=== PATIENT | female | born 2000 | race Caucasian/White ===

== ENCOUNTER 2021-10-07 15:21 | Emergency (ER) | payer OTHER, SELFPAY ==
[2021-10-07 15:30] VITALS: BP 150/101; PULSE 101; RESP 16; TEMP 36.6; O2SAT 98; BMI 28.3
--- NOTE | 2021-10-07 15:55 | ED_ITS ---
HPI - Asthma General Chief Complaint: Asthma Stated Complaint: asthma Time Seen by Provider: 10/07/21 15:55 Source: patient Mode of arrival: ambulatory Limitations: no limitations History of Present Illness HPI Narrative: 21-year-old female who presents emergency department for evaluation of asthma exacerbation. She states that she has been short of breath for 1 week. She states that she has had wheezing and dyspnea on exertion. She has had a cough which is nonproductive. The patient states that her mother has CT since she staying with her mother and this often triggers her asthma. She does not have an inhaler at this time. She denied fever, chills, rhinorrhea, chest pain, nausea, vomiting, abdominal pain, pain or swelling in her lower extremities. Onset (ago): week(s) (1) Severity: moderate Context: pet exposure (CT) Associated symptoms: dry cough Related Data Current Asthma Therapy: none Previous Rx's Medication Instructions Recorded albuterol sulfate 90 mcg/actuation 2 puff INHALATION Q4-6H PRN #8.5 g 10/07/21 aerosol inhaler (ProAir HFA) prednisone 20 mg tablet 60 mg PO DAILY 5 Days #15 tab 10/07/21 Allergies Allergy/AdvReac Type Severity Reaction Status Date / Time ibuprofen [From MOTRIN] Allergy Unknown HIVES Unverified 04/21/20 17:14 Review of Systems Review of Systems: Yes all other systems are reviewed and are negative [facility] Past Medical History [facility] Narrative: Past medical history: Asthma, PCOS, anemia, hypothyroidism. Past surgical history: None. Social history: She denies drug use. She denies tobacco use. She occasionally drinks alcohol. She states she did drink some rum last night. Physical Exam Vital Signs: Vital Signs: Last Vital Signs Temp 97.8 F 10/07/21 15:30 Pulse 101 H 10/07/21 15:30 Resp 16 10/07/21 15:30 BP 150/101 H 10/07/21 15:30 Pulse Ox 98 10/07/21 15:30 BMI result Body Mass Index 28.3 Const: General: cooperative and no acute distress Orientati on/consciousness: oriented to person and oriented to place Limitations: no limitations HENMT: Head: Yes normal to inspection, Yes normocephalic and Yes atraumatic Ears: external ears normal General nose exam: Normal external nose present Face and sinus: Yes normal facial exam Mouth: Normal oral and palatal mucosa present Throat: Yes posterior oropharynx normal Eyes: General: appearance normal, both eyes and all related structures Pupils: Equal, round and reactive pupils present Neck: Neck: Yes normal visual inspection, Yes no lymphadenopathy, Yes trachea midline and Yes supple Chest: Chest palpation & inspection: normal inspection of the chest and normal palpation of entire chest wall Resp: Effort & Inspection: normal respiratory effort and able to speak in complete sentences Auscultation: clear to auscultation bilaterally Cardio: Rate: regular rate Rhythm: regular rhythm Heart sounds: S1 normal heart sound present, S2 normal heart sound present and no murmurs GI: Inspection: Yes normal to inspection Palpation (GI): Soft to palpation, nontender and no guarding Auscultation: normal bowel sounds : General: Yes no CVA tenderness Back/Spine/Pelvis: Back: no CVA tenderness Skin: General skin exam: no rashes or lesions noted Neuro: General: oriented to person and oriented to place Cranial nerves: Yes CN's II-XII intact bilaterally and Yes Equal, round and reactive pupils present Cognition (Neuro): normal cognition Motor exam (neuro): 5/5 motor strength present throughout Extrem: General: Yes normal to inspection Psych: Appearance: grossly normal Speech and movement: Normal speech and movement present Affect: normal affect Attitude: cooperative Thought process: Normal thought process present Thought content: Normal thought content present Course Course Course Narrative: 21-year-old female with history of asthma who states that her triggers cat's, she staying with her mother groans cat's. She has had symptoms for 1 week in the symptoms include shortness of breath, wheezing, dyspnea on exertion and nonproductive cough. The patient does not have an inhaler at this time. The patient's vital signs did reveal an elevated blood pressure of 150/101 elevated pulse of 101. O2 sat was 98 % on room air. Her exam was unremarkable. Patient's presentation is consistent with an asthma exacerbation. Patient was started on albuterol inhaler 2 puffs every 4-6 hours and prednisone 60 mg once a day. She was given printed and verbal instructions and discharged home. MDM - Asthma Lab Data Labs: Lab Results 10/07/21 Range/Units 15:36 COVID-19 ([facility]) Negative (Negative) COVID-19 Clin Com See Note Discharge Plan Discharge Clinical Impression: Asthma with acute exacerbation Patient Disposition: Home, Self-Care Instructions: Asthma (ED) Additional Instructions: Use the albuterol inhaler, 2 puffs every 4 hours as needed for shortness of breath. Take prednisone 20 mg pills, 3 pills once a day for 5 days. This is a steroid medication and will reduce the inflammation in your breathing tubes (bronchials) and help improve your symptoms. Take Tylenol (acetaminophen) 500 mg pills, 2 pills every 4 to 6 hours as needed for pain or fever I will text or call you with your COVID-19 result. This sometimes takes 2 hours to come back. Follow-up with your doctor in 2 days. Please return to the emergency department if your symptoms get worse or if you develop any symptoms that are concerning to you. Prescriptions: New prednisone 20 mg tablet 60 mg PO DAILY 5 Days Qty: 15 0RF albuterol sulfate [ProAir HFA] 90 mcg/actuation HFA aerosol inhaler 2 puff inhalation Q4-6H PRN (Reason: shortness of breath or wheezing) Qty: 8.5 0RF
[2021-10-07 15:57] LABS: COVID-19 Test Negative (Negative); IDNOW Serial# 16C4AD1C
== END 2021-10-07 16:28 | disposition home or self-care (01) ==
LOC: HO.ED 16:06
PROVIDERS: Emergency Provider Emergency Medicine Emergency Medical Services
DX: J45.901 Unspecified asthma with (acute) exacerbation (principal); Z20.822 Contact with and (suspected) exposure to COVID-19
CPT/HCPCS: 87635; 99283

== ENCOUNTER 2021-10-31 21:38 | Emergency (ER) | payer OTHER, SELFPAY ==
--- NOTE | ~2021-10-31 | XR_ITS ---
EXAMINATION: XR CHEST CLINICAL INFORMATION: Asthma COMPARISON: None TECHNIQUE: Frontal view of the chest was obtained. FINDINGS: Cardiac silhouette is normal in size. The lungs are well aerated. There is no lobar consolidation. No pleural effusion or pneumothorax. XR/XR chest 1V IMPRESSION: No acute pulmonary pathology.
[2021-10-31 21:41] VITALS: BP 149/86; PULSE 84; RESP 18; TEMP 36.9; O2SAT 100; BMI 27.4
[2021-10-31 22:52] VITALS: BP 149/96; PULSE 100; RESP 16; TEMP 36.4; O2SAT 100
--- NOTE | 2021-10-31 22:56 | PC.NURSE ---
Assumed care of pt Pt c/o asthma attack since Saturday. Pt used inhaler 3x today with some relief but SOB and wheezing comes back. Last inhaler used at 1600. Pt also congested. 96% - 100% on RA NAD Will continue to monitor
--- NOTE | 2021-10-31 23:09 | ED_ITS ---
HPI - Asthma General Chief Complaint: Asthma Stated Complaint: Asthma, inhaler isnt working Time Seen by Provider: 10/31/21 23:09 Source: patient Mode of arrival: ambulatory Limitations: no limitations History of Present Illness HPI Narrative: Patient with history of asthma vaccine against COVID only if 1st shot in 08/26 complaining of nasal congestion for last 2-3 days with increased shortness of breath and dry cough no fever no chills Related Data Previous Rx's Medication Instructions Recorded albuterol sulfate 90 mcg/actuation 2 puff INHALATION Q4-6H PRN #8.5 g 10/07/21 aerosol inhaler (ProAir HFA) prednisone 20 mg tablet 60 mg PO DAILY 5 Days #15 tab 10/07/21 albuterol sulfate 90 mcg/actuation 2 puff INHALATION Q4-6H PRN #8.5 g 11/01/21 aerosol inhaler (ProAir HFA) prednisone 20 mg tablet 40 mg PO DAILY #10 tab 11/01/21 Allergies Allergy/AdvReac Type Severity Reaction Status Date / Time ibuprofen [From MOTRIN] Allergy Unknown HIVES Verified 10/31/21 21:41 Review of Systems Review of Systems: Yes all other systems are reviewed and are negative [facility] Social History Social History Advance Directives: No Advance Directives Information Provided: No Patient : No Physical Exam Vital Signs: Vital Signs: Last Vital Signs Temp 97.6 F 10/31/21 22:52 Pulse 98 10/31/21 23:22 Resp 20 10/31/21 23:22 BP 149/96 H 10/31/21 22:52 Pulse Ox 100 10/31/21 22:52 BMI result Body Mass Index 27.4 Appearance: Alert. Oriented X3. No acute distress. ENT: Pharynx normal. Oral Mucosa moist clear nasal discharge Neck: Normal inspection. Neck supple. CVS: Normal heart rate and rhythm. Pulses normal. Respiratory: No respiratory distress. Equal air entry bilateral, bilateral prolonged expiration with wheezing Abdomen: Soft and nontender. Bowel sounds are present, no mass palpable, no CVA tenderness Skin: Skin warm and dry. Normal skin color. Normal skin turgor. Extremities: No lower extremity edema. No calf tenderness Neuro: Oriented X 3. MDM - Asthma MDM Narrative Medical decision making narrative: Patient feeling better after nebulizing treatment will discharge patient home chest x-ray negative flu COVID negative Lab Data Attestation: I reviewed the patient's lab results. Labs: Lab Results 10/31/21 10/31/21 Range/Units 23:26 23:26 COVID-19 ([facility]) Negative (Negative) COVID-19 Clin Com See Note Influenza Type A ([facility]) Negative (Negative) Influenza Type B ([facility]) Negative (Negative) Influenza A & B Note See Note Discharge Plan Discharge Clinical Impression: Asthma with acute exacerbation Patient Disposition: Home, Self-Care Instructions: Asthma (ED) Additional Instructions: Use inhaler 2 puffs every 4-6 hours as needed Prednisone as advised Follow with PCP if not better Prescriptions: New prednisone 20 mg tablet 40 mg PO DAILY Qty: 10 0RF albuterol sulfate [ProAir HFA] 90 mcg/actuation HFA aerosol inhaler 2 puff inhalation Q4-6H PRN (Reason: Wheezing) Qty: 8.5 0RF No Action prednisone 20 mg tablet 60 mg PO DAILY 5 Days Qty: 15 0RF albuterol sulfate [ProAir HFA] 90 mcg/actuation HFA aerosol inhaler 2 puff inhalation Q4-6H PRN (Reason: shortness of breath or wheezing) Qty: 8.5 0RF
[2021-10-31 23:22] VITALS: PULSE 98; RESP 20; O2SAT 97
[2021-10-31] MEDS: Albuterol Sulfate (0.083%) 2.5 MG/3 ML VIAL.NEB 5 MG INHALE (23:22)
[2021-10-31] MEDS: Albuterol/Iprat 2.5/0.5MG 3 ML AMPUL.NEB INHALE (23:22)
[2021-10-31] MEDS: predniSONE 20 MG TABLET 40 MG PO (23:26)
[2021-10-31 23:50] LABS: IDNOW Serial# 08D9AD1C; Influenza A Negative (Negative); Influenza B2 Negative (Negative)
[2021-11-01 00:02] LABS: COVID-19 Test Negative (Negative); IDNOW Serial# 08D9AD1C
[2021-11-01 00:17] VITALS: BP 129/83; PULSE 114; RESP 18; O2SAT 97
== END 2021-11-01 00:20 | disposition home or self-care (01) ==
PROVIDERS: Emergency Provider Internal Medicine
DX: J45.901 Unspecified asthma with (acute) exacerbation (principal); Z20.822 Contact with and (suspected) exposure to COVID-19; Z79.899 Other long term (current) drug therapy
CPT/HCPCS: 71045; 87502; 87635; 94640; 94644; 99283; 99284

== ENCOUNTER 2021-12-26 00:38 | Emergency (ER) | payer OTHER, SELFPAY ==
[2021-12-26 01:09] LABS: Basophils Absolute Auto 0.1 X10*3/uL (0.0-0.2); Eosinophils Absolute Auto 0.3 X10*3/uL (0.0-0.4); Eosinophils Percent Auto 3.2 % (0-4); Hematocrit 32.4 % (37.0-47.0); Hemoglobin 9.4 g/dl (12.0-16.0); Imm Gran Abs Auto 0.03 X10*3/uL (0.00-0.03); Imm Gran Pct Auto 0.3 % (0.0-0.4); Lymphocytes Absolute Auto 2.6 X10*3/uL (1.2-4.9); Lymphocytes Percent Auto 28.8 % (20-40); MANUAL DIFF FLAG NO; Mean Corpuscular Hemoglobin 20.1 pg (27.0-33.0); Mean Corpuscular Volume 69.4 fL (80.0-98.0); Monocytes Absolute Auto 0.7 X10*3/uL (0.1-1.2); Neutrophils Absolute Auto 5.4 x10*3/uL (2.0-8.3); Neutrophils Percent Auto 58.7 % (45-73); Platelet Count 363 X10*3/uL (160-400); Red Blood Count 4.67 X10*6/uL (4.20-5.50); Red Cell Distribution Width 18.9 % (11.0-16.0); White Blood Count 9.2 X10*3/uL (4.8-10.8)
[2021-12-26 01:13] VITALS: BP 154/81; PULSE 115; RESP 20; TEMP 36.4; O2SAT 100; BMI 28.3
[2021-12-26 01:20] LABS: INTERNATIONAL NORM RATIO 1.2 (0.9-1.1); Prothrombin Time 13.1 SEC (9.9-13.0)
[2021-12-26 01:33] LABS: Alanine Aminotransferase 15 U/L (0-31); Albumin Level 4.3 g/dL (3.5-5.0); Alkaline Phosphatase 66 U/L (39-117); Anion Gap 10 (12-20); Aspartate Amino Transferase 17 U/L (5-31); Bilirubin Direct 0.2 mg/dL (0.0-0.5); Bilirubin Total 0.6 mg/dL (0.0-1.0); Blood Urea Nitrogen 10 mg/dL (9-16); Calcium 9.6 mg/dL (8.4-10.2); Carbon Dioxide 26 mmol/L (22-29); Chloride 107 mmol/L (96-108); Estimated Glomerular Filt Rate > 60; Glucose Random 97 mg/dL (60-115); Potassium 4.3 mmol/L (3.3-5.1); Sodium 139 mmol/L (135-145)
[2021-12-26 01:39] LABS: HCG Quantitative < 2 mIU/mL
[2021-12-26 01:50] VITALS: BP 154/90; PULSE 115; RESP 16; O2SAT 100
--- NOTE | 2021-12-26 01:50 | ED.FEMALEGU ---
HPI - Female Genitourinary General Chief complaint: Urogenital-Female Stated complaint: Vaginal Bleeding/Nausea/Dizziness Time Seen by Provider: 12/26/21 00:39 Source: patient Mode of arrival: ambulatory Limitations: no limitations History of Present Illness MD elicited complaint: vaginal bleeding and pelvic pain Pertinent past history: other (anemia, irregular bleeding PCOS) Onset (ago): day(s) (2) Location of symptoms: suprapubic Severity: moderate Quality of pain: aching Consistency: constant Vaginal bleeding: heavy, bright red, clots and # pads per day (10+) Exacerbating factors: none Relieving factors: none Associated symptoms: weakness Treatment prior to arrival: none Related Data Previous Rx's Medication Instructions Recorded albuterol sulfate 90 mcg/actuation 2 puff INHALATION Q4-6H PRN #8.5 g 10/07/21 aerosol inhaler (ProAir HFA) prednisone 20 mg tablet 60 mg PO DAILY 5 Days #15 tab 10/07/21 albuterol sulfate 90 mcg/actuation 2 puff INHALATION Q4-6H PRN #8.5 g 11/01/21 aerosol inhaler (ProAir HFA) prednisone 20 mg tablet 40 mg PO DAILY #10 tab 11/01/21 ferrous sulfate 325 mg (65 mg 325 mg PO DAILY #30 tab 12/26/21 iron) tablet levonorgestrel-ethinyl estradiol 1 tab PO DAILY #28 tab 12/26/21 0.1 mg-20 mcg tablet (Aviane) Allergies Allergy/AdvReac Type Severity Reaction Status Date / Time ibuprofen [From MOTRIN] Allergy Unknown HIVES Verified 10/31/21 21:41 Review of Systems Review of Systems: Constitutional : No Fever, No Chills ENT/Mouth : No sore throat, No Rhinorrhea Eyes: No Eye Pain, No Redness Cardiovascular : No Chest Pain, No SOB Respiratory : No Cough, No Sputum, No Wheezing Gastrointestinal : positive Nausea, No Vomiting, No Diarrhea, no abdominal pain, Genitourinary : positive irregular bleeding, No Dysuria, No Urinary Frequency, positive pelvic pain Musculoskeletal : No Myalgias Skin : No rash Neuro : No Weakness, No Headache, pos dizziness Psych : No Anxiety/Panic, No Depression Heme/Lymph: No bruising, No Lymphadenopathy Endocrine : No Polyuria, No Polydipsia All other systems reviewed and are negative PMFSH Past Medical History Attestation statement: The following information was validated with the patient. Medical History Anemia Hypothyroidism PCOS (polycystic ovarian syndrome) Social History Social History (Updated 12/26/21 @ 02:06 by Beatris Beard DO) Patient Tobacco Use Status: Never used Tobacco Use of substances other than those prescribed or required for medical reasons: No Advance Directives: No Patient : No Physical Exam Vital Signs: Vital Signs: Last Vital Signs Temp 97.5 F 12/26/21 01:13 Pulse 87 12/26/21 04:31 Resp 16 12/26/21 04:31 BP 132/69 12/26/21 04:31 Pulse Ox 97 12/26/21 04:31 BMI result Body Mass Index 28.3 Appearance: Alert. Oriented X3. No acute distress. Eyes: Pupils equal, round and reactive to light. ENT: Pharynx normal. Neck: Normal inspection. Neck supple. CVS: tachycardic heart rate and rhythm. Pulses normal. Respiratory: No respiratory distress. Breath sounds normal. Abdomen: Soft and non-tender. : 3 scopettes of blood os closed, no clots seen Skin: Skin warm and dry. pale skin color. Normal skin turgor. Extremities: No lower extremity edema. No calf ttp Neuro: Oriented X 3. No motor deficit. No sensory deficit. Course Course Course Narrative: will hydrate, obtain type and screen, repeat CBC at 430am if bleeding worsens or persists she has no contraindications to premarin HR 80 BP stable hemoglobin drop to 8.2 no sig bleeding will discuss with OB message sent to OB 5am bleeding has decreased since arrival patient feels much better after much discussion she didn't actually take her OCPs as prescribed and missed doses which likely attributed to them not working Dr. Andrews recommends starting on OCPs and follow up this week - mom wants to try Aviane since it worked for patient's sister MDM - Female Genitourinary MDM Narrative Medical decision making narrative: 21 yo female hx of anemia and PCOS bouts of heavy vaginal bleeding has been bleeding for the past two days going through almost a whole package of pads - at this time her hemoglobin is low but her hgb is sometimes around 6 per her reports. She is not on OCPs at this time labs, IVF, pelvic exam ordered. Dispo per results and observation. Lab Data Result diagrams: 12/26/21 04:19 12/26/21 00:58 Labs: Lab Results 12/26/21 12/26/21 12/26/21 Range/Units 00:58 00:58 00:58 WBC 9.2 (4.8-10.8) X10*3/uL RBC 4.67 (4.20-5.50) X10*6/uL Hgb 9.4 L (12.0-16.0) g/dl Hct 32.4 L (37.0-47.0) % MCV 69.4 L (80.0-98.0) fL MCH 20.1 L (27.0-33.0) pg MCHC 29.0 L (31.0-35.0) g/dl RDW 18.9 H (11.0-16.0) % Plt Count 363 (160-400) X10*3/uL MPV 10.0 (9.4-12.3) fL Immature Gran % (Auto) 0.3 (0.0-0.4) % Neut % (Auto) 58.7 (45-73) % Lymph % (Auto) 28.8 (20-40) % Walker % (Auto) 8.0 (2-11) % Eos % (Auto) 3.2 (0-4) % Baso % (Auto) 1.0 (0-2) % Lymph # (Auto) 2.6 (1.2-4.9) X10*3/uL Walker # (Auto) 0.7 (0.1-1.2) X10*3/uL Eos # (Auto) 0.3 (0.0-0.4) X10*3/uL Baso # (Auto) 0.1 (0.0-0.2) X10*3/uL Abs Immat Gran (auto) 0.03 (0.00-0.03) X10*3/uL Absolute Neuts (auto) 5.4 (2.0-8.3) x10*3/uL Absolute Nucleated RBC 0.000 (0.0-0.012) X10*3/uL Nucleated RBC % (auto) 0.0 (0.0-0.2) /100WBC PT 13.1 H (9.9-13.0) SEC INR 1.2 H (0.9-1.1) Sodium 139 (135-145) mmol/L Potassium 4.3 (3.3-5.1) mmol/L Chloride 107 (96-108) mmol/L Carbon Dioxide 26 (22-29) mmol/L Anion Gap 10 L (12-20) BUN 10 (9-16) mg/dL Creatinine 0.76 (0.5-1.4) mg/dL Estim Creat Clear Calc 114.0 Estimated GFR > 60 Random Glucose 97 (60-115) mg/dL Calcium 9.6 (8.4-10.2) mg/dL Total Bilirubin 0.6 (0.0-1.0) mg/dL Direct Bilirubin 0.2 (0.0-0.5) mg/dL AST 17 (5-31) U/L ALT 15 (0-31) U/L Alkaline Phosphatase 66 (39-117) U/L Total Protein 8.0 (6.5-8.0) g/dL Albumin 4.3 (3.5-5.0) g/dL Beta HCG, Quant < 2 mIU/mL Urine Color Urine Appearance Urine pH (5.0-8.0) Ur Specific Hamilton (1.005-1.025) Urine Protein (NEG-TRACE) MG/DL Urine Glucose (UA) (NEG) MG/DL Urine Ketones (NEG) MG/DL Urine Blood (NEG) Urine Nitrite (NEG) Ur Leukocyte Esterase (NEG) Urine RBC (0) /HPF Urine WBC (0-4) /HPF Ur Squamous Epith Cells /LPF Urine Bacteria /LPF Urine Mucus /LPF Blood Type Antibody Screen 12/26/21 12/26/21 12/26/21 Range/Units 00:58 02:53 04:15 WBC (4.8-10.8) X10*3/uL RBC (4.20-5.50) X10*6/uL Hgb (12.0-16.0) g/dl Hct (37.0-47.0) % MCV (80.0-98.0) fL MCH (27.0-33.0) pg MCHC (31.0-35.0) g/dl RDW (11.0-16.0) % Plt Count (160-400) X10*3/uL MPV (9.4-12.3) fL Immature Gran % (Auto) (0.0-0.4) % Neut % (Auto) (45-73) % Lymph % (Auto) (20-40) % Walker % (Auto) (2-11) % Eos % (Auto) (0-4) % Baso % (Auto) (0-2) % Lymph # (Auto) (1.2-4.9) X10*3/uL Walker # (Auto) (0.1-1.2) X10*3/uL Eos # (Auto) (0.0-0.4) X10*3/uL Baso # (Auto) (0.0-0.2) X10*3/uL Abs Immat Gran (auto) (0.00-0.03) X10*3/uL Absolute Neuts (auto) (2.0-8.3) x10*3/uL Absolute Nucleated RBC (0.0-0.012) X10*3/uL Nucleated RBC % (auto) (0.0-0.2) /100WBC PT (9.9-13.0) SEC INR (0.9-1.1) Sodium (135-145) mmol/L Potassium (3.3-5.1) mmol/L Chloride (96-108) mmol/L Carbon Dioxide (22-29) mmol/L Anion Gap (12-20) BUN (9-16) mg/dL Creatinine (0.5-1.4) mg/dL Estim Creat Clear Calc Estimated GFR Random Glucose (60-115) mg/dL Calcium (8.4-10.2) mg/dL Total Bilirubin (0.0-1.0) mg/dL Direct Bilirubin (0.0-0.5) mg/dL AST (5-31) U/L ALT (0-31) U/L Alkaline Phosphatase (39-117) U/L Total Protein (6.5-8.0) g/dL Albumin (3.5-5.0) g/dL Beta HCG, Quant mIU/mL Urine Color YELLOW Urine Appearance CLEAR Urine pH 6.5 (5.0-8.0) Ur Specific Hamilton 1.020 (1.005-1.025) Urine Protein NEG (NEG-TRACE) MG/DL Urine Glucose (UA) NEG (NEG) MG/DL Urine Ketones NEG (NEG) MG/DL Urine Blood 3+ H (NEG) Urine Nitrite NEG (NEG) Ur Leukocyte Esterase NEG (NEG) Urine RBC 30-49 H (0) /HPF Urine WBC 1-4 (0-4) /HPF Ur Squamous Epith Cells 1+ /LPF Urine Bacteria 2+ /LPF Urine Mucus 1+ /LPF Blood Type A Positive A Positive Antibody Screen NEGATIVE 12/26/21 Range/Units 04:19 WBC 13.1 H (4.8-10.8) X10*3/uL RBC 3.99 L (4.20-5.50) X10*6/uL Hgb 8.2 L (12.0-16.0) g/dl Hct 27.5 L (37.0-47.0) % MCV 68.9 L (80.0-98.0) fL MCH 20.6 L (27.0-33.0) pg MCHC 29.8 L (31.0-35.0) g/dl RDW 18.7 H (11.0-16.0) % Plt Count 300 (160-400) X10*3/uL MPV 10.1 (9.4-12.3) fL Immature Gran % (Auto) (0.0-0.4) % Neut % (Auto) (45-73) % Lymph % (Auto) (20-40) % Walker % (Auto) (2-11) % Eos % (Auto) (0-4) % Baso % (Auto) (0-2) % Lymph # (Auto) (1.2-4.9) X10*3/uL Walker # (Auto) (0.1-1.2) X10*3/uL Eos # (Auto) (0.0-0.4) X10*3/uL Baso # (Auto) (0.0-0.2) X10*3/uL Abs Immat Gran (auto) (0.00-0.03) X10*3/uL Absolute Neuts (auto) (2.0-8.3) x10*3/uL Absolute Nucleated RBC 0.000 (0.0-0.012) X10*3/uL Nucleated RBC % (auto) 0.0 (0.0-0.2) /100WBC PT (9.9-13.0) SEC INR (0.9-1.1) Sodium (135-145) mmol/L Potassium (3.3-5.1) mmol/L Chloride (96-108) mmol/L Carbon Dioxide (22-29) mmol/L Anion Gap (12-20) BUN (9-16) mg/dL Creatinine (0.5-1.4) mg/dL Estim Creat Clear Calc Estimated GFR Random Glucose (60-115) mg/dL Calcium (8.4-10.2) mg/dL Total Bilirubin (0.0-1.0) mg/dL Direct Bilirubin (0.0-0.5) mg/dL AST (5-31) U/L ALT (0-31) U/L Alkaline Phosphatase (39-117) U/L Total Protein (6.5-8.0) g/dL Albumin (3.5-5.0) g/dL Beta HCG, Quant mIU/mL Urine Color Urine Appearance Urine pH (5.0-8.0) Ur Specific Hamilton (1.005-1.025) Urine Protein (NEG-TRACE) MG/DL Urine Glucose (UA) (NEG) MG/DL Urine Ketones (NEG) MG/DL Urine Blood (NEG) Urine Nitrite (NEG) Ur Leukocyte Esterase (NEG) Urine RBC (0) /HPF Urine WBC (0-4) /HPF Ur Squamous Epith Cells /LPF Urine Bacteria /LPF Urine Mucus /LPF Blood Type Antibody Screen Discharge Plan Discharge Clinical Impression: Chronic anemia Menorrhagia Qualifiers: Menorrhagia type: with irregular cycle Qualified Code(s): N92.1 - Excessive and frequent menstruation with irregular cycle Patient Disposition: Home, Self-Care Instructions: Menorrhagia (ED), Anemia (ED) Additional Instructions: return to ED for any worsening symptoms or concerns take control regularly at the same time every day return for dizziness, shortness of breath, worsening bleeding call our OB for appointment this week recheck blood counts in 2 days Prescriptions: New levonorgestrel-ethinyl estrad [Aviane] 0.1-20 mg-mcg tablet 1 tab PO DAILY Qty: 28 1RF ferrous sulfate 325 mg (65 mg iron) tablet 325 mg PO DAILY Qty: 30 0RF No Action prednisone 20 mg tablet 60 mg PO DAILY 5 Days Qty: 15 0RF albuterol sulfate [ProAir HFA] 90 mcg/actuation HFA aerosol inhaler 2 puff inhalation Q4-6H PRN (Reason: shortness of breath or wheezing) Qty: 8.5 0RF prednisone 20 mg tablet 40 mg PO DAILY Qty: 10 0RF albuterol sulfate [ProAir HFA] 90 mcg/actuation HFA aerosol inhaler 2 puff inhalation Q4-6H PRN (Reason: Wheezing) Qty: 8.5 0RF Referrals: Willis Andrews MD [Physician] - 1 week Stand Alone Forms: Work/School Release
[2021-12-26] MEDS: 0.9 % Sodium Chloride 1,000 ML 999 ML IV (01:58)
[2021-12-26 04:23] LABS: Hematocrit 27.5 % (37.0-47.0); Hemoglobin 8.2 g/dl (12.0-16.0); Mean Corpuscular HGB Conc 29.8 g/dl (31.0-35.0); Mean Corpuscular Hemoglobin 20.6 pg (27.0-33.0); Mean Corpuscular Volume 68.9 fL (80.0-98.0); Mean Platelet Volume 10.1 fL (9.4-12.3); Platelet Count 300 X10*3/uL (160-400); Red Blood Count 3.99 X10*6/uL (4.20-5.50); Red Cell Distribution Width 18.7 % (11.0-16.0); White Blood Count 13.1 X10*3/uL (4.8-10.8)
[2021-12-26 04:24] LABS: Appearance Urine CLEAR; Color Urine YELLOW; Glucose Urine UA NEG (NEG); Leukocyte Esterase Urine NEG (NEG); Nitrite Urine NEG (NEG); PH 6.5 (5.0-8.0); UACC Culture Trigger NO; Urine Blood 3+ (NEG); Urine Ketones NEG (NEG); Urine Protein NEG (NEG-TRACE)
[2021-12-26 04:31] VITALS: BP 132/69; PULSE 87; RESP 16; O2SAT 97
[2021-12-26 04:36] LABS: Bacteria Urine 2+ /LPF; Mucus Urine 1+ /LPF; RBC Urine 30-49 /HPF (0); Squamous Epithelial Cell Urine 1+ /LPF
--- NOTE | 2021-12-26 06:47 | PM.GYNCN ---
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 The patient was prescribed control pills and skipped few doses and ultimately discontinued them on her own. In the emergency room initial hemoglobin was 9.4, the patient received IV hydration, repeat hemoglobin 4 hours afterwards was 8.2 , vaginal bleeding has slowed down significantly , reported to almost has resolved and that the patient feels much better. cc:: CC: [employer] - Review of Systems Review of Systems ROS Unobtainable: All systems reviewed & are unremarkable except as noted in HPI and below Cardiovascular: Denies Palpatations, Loss of consciousness or Chest pain Respiratory: Denies Cough, Wheezing or Shortness of breath Musculoskeletal: Denies Low back pain Gastrointestinal: Denies Heartburn, Constipation, Diarrhea, Nausea or Vomiting Genitourinary: Denies Pain with urination, Burning with urination or Urinary frequency Neurological: Denies Migranes Psychological: Denies Depression OB [facility] Past Medical History Medical History Anemia Hypothyroidism PCOS (polycystic ovarian syndrome) Social History Social History Patient Tobacco Use Status: Never used Tobacco Use of substances other than those prescribed or required for medical reasons: No Advance Directives: No Patient : No Meds Allergies Allergy/AdvReac Type Severity Reaction Status Date / Time ibuprofen [From MOTRIN] Allergy Unknown HIVES Verified 10/31/21 21:41 [employer] Physical Exam Vitals Vital signs: Temp Pulse Resp BP Pulse Ox 97.5 F 87 16 132/69 97 12/26/21 01:13 12/26/21 04:31 12/26/21 04:31 12/26/21 04:31 12/26/21 04:31 BMI result Body Mass Index 28.3 Constitutional General Appearance: Healthy appearing, Well-nourished and Well-developed Psychiatric Mood and Affect: active and alert, normal mood and normal affect Skin Appearance: No rashes and No lesions Lungs Respiratory Effort: No intercostal retractions Auscultation: Clear to auscultation Cardiovascular Auscultation: RRR Abdomen Auscultation/Inspection/Palpation: Normal bowel sounds, Soft, Non-distended and No tenderness Additional Comments: Reported by Dr. Hylton : initial pelvic exam no significant bleeding about 3 scopettes,no cervical motion tenderness, no uterine tenderness or any other significant findings [employer]ER - Results Labs CBC & Chem 7: 12/26/21 04:19 12/26/21 00:58 Labs: Short CBC 12/26/21 12/26/21 Range/Units 00:58 04:19 WBC 9.2 13.1 H (4.8-10.8) X10*3/uL Hgb 9.4 L 8.2 L (12.0-16.0) g/dl Hct 32.4 L 27.5 L (37.0-47.0) % Plt Count 363 300 (160-400) X10*3/uL BMP 12/26/21 00:58 Sodium 139 Potassium 4.3 Chloride 107 Carbon Dioxide 26 BUN 10 Creatinine 0.76 Calcium 9.6 Liver Function 12/26/21 Range/Units 00:58 Total Bilirubin 0.6 (0.0-1.0) mg/dL Direct Bilirubin 0.2 (0.0-0.5) mg/dL AST 17 (5-31) U/L ALT 15 (0-31) U/L Alkaline Phosphatase 66 (39-117) U/L Albumin 4.3 (3.5-5.0) g/dL Urine 12/26/21 Range/Units 04:15 Urine Color YELLOW Urine Appearance CLEAR Urine pH 6.5 (5.0-8.0) Ur Specific [place] 1.020 (1.005-1.025) Urine Protein NEG (NEG-TRACE) MG/DL Urine Glucose (UA) NEG (NEG) MG/DL Antibody Screen Antibody Screen NEGATIVE 12/26/21 02:53 Assessment and Plan (1) Menorrhagia: Qualifiers: Menorrhagia type: with irregular cycle Qualified Code(s): N92.1 - Excessive and frequent menstruation with irregular cycle Status: Acute Plan Recommended to Dr. Beard the following : start the patient on control pills with iron sulfate 325 mg p.o. t.i.d. and follow-up in the office as soon as possible, instructions to be given to patient to come back to the emergency room in case of vaginal bleeding and follow-up in the office as soon as possible for endometrial biopsy to rule out endometrial pathology including hyperplasia or cancer or polyps it might be associated with PCOS. I spent a total of 25 minutes reviewing the chart, communicating with the ER provider and documenting in the medical record. This note was generated with a voice recognition program. Some errors may have been overlooked during the review of this note. Sometimes these errors may affect the content or meaning of a given sentence.
== END 2021-12-26 05:25 | disposition home or self-care (01) ==
PROVIDERS: Emergency Provider Emergency Medicine; PCP Physician Assistant
DX: N92.1 Excessive and frequent menstruation with irregular cycle (principal); D64.9 Anemia, unspecified
CPT/HCPCS: 36415; 80048; 80076; 81001; 84702; 85025; 85027; 85610; 86850; 86900; 86901; 96360; 99284

== ENCOUNTER 2022-01-03 12:13 | Outpatient (REF) | payer OTHER, SELFPAY ==
[2022-01-04 01:54] LABS: CT PCR DETECTED (Not Detect.); NG PCR NOT DETECTED (Not Detect.)
== END 2022-01-03 12:14 | disposition home or self-care (01) ==
LOC: HO.LAB 12:13
PROVIDERS: PCP Physician Assistant; Visit Provider Obstetrics & Gynecology
DX: Z01.411 Encounter for gynecological examination (general) (routine) with abnormal findings (principal); N93.9 Abnormal uterine and vaginal bleeding, unspecified
CPT/HCPCS: 87491; 87591; 88142; 99212

== ENCOUNTER 2024-04-28 10:55 | Emergency (ER) | payer OTHER, SELFPAY ==
--- NOTE | ~2024-04-28 | XR_ITS ---
EXAMINATION: XR CHEST CLINICAL INFORMATION: Wheezing COMPARISON: Chest x-ray October 31, 2021 TECHNIQUE: 2 views of the chest were obtained. FINDINGS: No significant abnormality is noted involving the heart, lungs, mediastinum, bony thorax or soft tissues. XR/XR chest 2V IMPRESSION: Unremarkable examination. Electronically signed by: Peter Ken MD 04/28/2024 03:03 PM EDT RP
[2024-04-28 12:12] VITALS: BP 147/103; PULSE 112; RESP 18; O2SAT 96; BMI 28.0
--- NOTE | 2024-04-28 12:19 | ED_ITS ---
HPI - SOB/Dyspnea General Chief Complaint: Dyspnea Stated Complaint: SOB Time Seen by Provider: 04/28/24 12:29 Source: patient, RN notes reviewed and old records reviewed Mode of arrival: ambulatory History of Present Illness ED Provider: Paige Corea PA-C HPI Narrative: 23 yo F with a PMH of asthma, hypothyroidism, and PCOS presents ED today c/o wheezing, SOB and dyspnea on exertion for approximately 12 days. Patient reports that she recently relocated from [place] and moved in with her mother who has cats and dogs, for which she is allergic. Since moving in, she feels as though she has been unable to catch her breath, especially when exerting herself. Patient has previously been prescribed an inhaler for which she is not compliant with. Patient also reports new onset of palpations since starting nebulizer treatment. Endorses congestion and cough. Denies sore throat, sputum production, chest pain. No recent illness or sick contacts. No further complaints at this time. Related Data Previous Rx's ?Medication ?Instructions ?Recorded albuterol sulfate 90 mcg/actuation 2 puff inhalation Q4-6H PRN 10/07/21 aerosol inhaler (ProAir HFA) shortness of breath or wheezing #8.5 grams albuterol sulfate 90 mcg/actuation 2 puff inhalation Q4-6H PRN 11/01/21 aerosol inhaler (ProAir HFA) Wheezing #8.5 grams ferrous sulfate 325 mg (65 mg 325 mg PO DAILY #30 tabs 12/26/21 iron) tablet levonorgestrel-ethinyl estradiol 1 tab PO DAILY #28 tabs 12/26/21 0.1 mg-20 mcg tablet (Aviane) azithromycin 500 mg tablet 1,000 mg (2 x 500 mg) PO ONCE #2 01/04/22 tabs prednisone 20 mg tablet 40 mg (2 x 20 mg) PO DAILY 4 days 04/28/24 #8 tabs Allergies Allergy/AdvReac Type Severity Reaction Status Date / Time ibuprofen [From MOTRIN] Allergy Unknown HIVES Verified 04/28/24 12:14 Review of Systems Review of Systems: Yes all other systems are reviewed and are negative Constitutional: Constitutional: Reports as per [facility] Past Medical History Attestation statement: The following information was validated with the patient. Source: old records reviewed Medical History Hypothyroidism PCOS (polycystic ovarian syndrome) Anemia Social History Social History Patient Tobacco Use Status: Never used Tobacco Advance Directives: No Advance Directives Information Provided: No Physical Exam Vital Signs: Vital Signs: Last Vital Signs Temp 97.8 F 04/28/24 14:42 Pulse 98 04/28/24 14:42 Resp 16 04/28/24 14:42 BP 120/93 H 04/28/24 14:42 Pulse Ox 95 04/28/24 14:42 O2 Del Method Room Air 04/28/24 14:42 BMI result Body Mass Index 28.0 Const: General: cooperative, healthy appearing and no acute distress Orientation/consciousness: patient oriented x3 Limitations: no limitations HEENT: Head: Yes normal to inspection and Yes atraumatic Ears: hearing grossly normal bilaterally General nose exam: Normal external nose present Face and sinus: Yes normal facial exam Eyes: General: appearance normal, both eyes and all related structures EOM: EOMs intact bilaterally Neck: Neck: Yes normal visual inspection and Yes no meningeal signs Resp: Effort & Inspection: normal respiratory effort and no respiratory distress Auscultation: wheezes inspiratory wheezes and right upper Cardio: Rate: regular rate and tachycardic Heart sounds: S1 normal heart sound present and S2 normal heart sound present Skin: Rashes: no rashes Wounds: no wounds Neuro: General: patient oriented x3, tone normal and no meningeal signs Cranial nerves: Yes CN's II-XII intact bilaterally Gait exam (Neuro): Normal gait present Extrem: General: Yes normal to inspection Course Course Course Narrative: This is a rapid medical exam performed by Shira Hendricks PA-C. The patient is a 23-year-old female with history of asthma. Upon returning home from [place], she is currently residing with her mother who has cats, her asthma has been triggered, she has no medication at home. Her symptoms have been worse over the past week. On exam she has diffuse expiratory wheezing. She is tachypneic. However not hypoxic, she is 96% on room air. No preceding viral syndrome. Ordering a chest x-ray, updraft and prednisone 40 mg. She will briefly returned to the [facility] room pending treatment, she will go to [facility] -1348--COVID/flu/RSV negative -1440--on re-evaluation lungs CTA. Patient was provided with albuterol inhaler in the ED XR chest 2V IMPRESSION: Unremarkable examination. Results discussed with patient including worrisome signs and symptoms and strict return precautions, and when to return to the emergency department. They verbalized understanding and feel safe for discharge at this time. Medications Administered Discontinued Medications Generic Name Dose Route Start Last Admin Trade Name Freq PRN Reason Stop Dose Admin Albuterol Sulfate 7.5 mg 04/28/24 12:18 04/28/24 12:28 Albuterol Sulfate (0.083%) 2.5 Mg/3 Ml Vial.Neb INHALE 04/28/24 12:19 7.5 mg ONCE ONE Administration Albuterol Sulfate 4 puff 04/28/24 13:11 04/28/24 13:25 Albuterol Sulfate 90 Mcg 8 Gm Inhaler INHALE 04/28/24 13:12 4 puff ONCE ONE Administration Prednisone 40 mg 04/28/24 12:18 04/28/24 12:33 Prednisone 20 Mg Tablet PO 04/28/24 12:19 40 mg ONCE ONE Administration Medical Decision Making Medical Decision Making MDM Narrative: 23 yo F with a PMH of asthma, hypothyroidism, and PCOS presents ED today c/o wheezing, SOB and dyspnea on exertion for approximately 12 days. On exam hypertensive, tachycardic likely from albuterol treatment, NAD/nontoxic appearing, talking in complete sentences, no respiratory distress, inspiratory wheeze appreciated in RUL. Concern for asthma exacerbation vs viral illness vs pneumonia. Lower suspicion for ACS/PE or CHF. Plan: Viral testing, CXR, p.o. prednisone, DuoNeb, re-evaluate Please refer to course for remaining clinical decision making, interpretation of labs/imaging results, and discussions with consultants and/or family members. Differential Diagnosis Differential Diagnoses: The differential diagnosis associated with the presentation includes As above Admission/Observation Consideration of admission/observation: Escalation of care including admission/observation considered Lab Data [facility] Lab Attestation statement: I reviewed the patient's lab results. Labs: Lab Results 04/28/24 Range/Units 12:34 Influenza Type A (PCR) NEGATIVE (Negative) Influenza Type B (PCR) NEGATIVE (Negative) RSV RNA Qual (PCR) NEGATIVE (Negative) SARS-CoV-2 RNA (RT-PCR) NEGATIVE (Negative) Independent Interpretation I performed an independent interpretation of an: Plain X-Ray Radiology Impression Discussion of test interpretation with radiology: I have reviewed the radiologist's reading. External Record Review External record reviewed: Inpatient record, Office record, Outpatient record, Prior outpatient labs, Prior outpatient radiology, Primary care record and Outside ED record Tests considered The following testing was considered but not selected: As above Prescription Management I considered prescription management with: Pain Medication Chronic Conditions Patient?s care impacted by: Other (asthma) Discharge Plan Discharge Clinical Impression: Asthma exacerbation Patient Disposition: Home, Self-Care Instructions: Asthma (DC) Additional Instructions: You tested negative for COVID, flu, RSV. Her x-rays unremarkable Please use inhaler that was provided to you. Addition take prednisone until completion Follow-up with your doctor Please avoid allergens If her symptoms persist or worsen return to the emergency department Prescriptions: New prednisone 20 mg tablet 40 mg PO DAILY 4 Days Qty: 8 0RF No Action azithromycin 500 mg tablet 1,000 mg PO ONCE Qty: 2 0RF albuterol sulfate [ProAir HFA] 90 mcg/actuation HFA aerosol inhaler 2 puff inhalation Q4-6H PRN (Reason: shortness of breath or wheezing) Qty: 8.5 0RF albuterol sulfate [ProAir HFA] 90 mcg/actuation HFA aerosol inhaler 2 puff inhalation Q4-6H PRN (Reason: Wheezing) Qty: 8.5 0RF levonorgestrel-ethinyl estrad [Aviane] 0.1-20 mg-mcg tablet 1 tab PO DAILY Qty: 28 1RF ferrous sulfate 325 mg (65 mg iron) tablet 325 mg PO DAILY Qty: 30 0RF Referrals: Physician,Unknown J [Primary Care Provider] - 1 week Print Language: Nepali
[2024-04-28] MEDS: Albuterol Sulfate (0.083%) 2.5 MG/3 ML VIAL.NEB 7.5 MG INHALE (12:28)
[2024-04-28 12:30] VITALS: PULSE 114; RESP 18; O2SAT 94
[2024-04-28] MEDS: predniSONE 20 MG TABLET 40 MG PO (12:33)
[2024-04-28] MEDS: Albuterol Sulfate 90 MCG 8 GM INHALER 4 PUFF INHALE (13:25)
[2024-04-28 13:32] LABS: Influenza A PCR NEGATIVE (Negative); Influenza B PCR NEGATIVE (Negative); Resp Syncy Virus RNA Qual PCR NEGATIVE (Negative); SARS COV2 PCR INHOUSE NEGATIVE (Negative)
[2024-04-28 14:42] VITALS: BP 120/93; PULSE 98; RESP 16; TEMP 36.6; O2SAT 95
[2024-04-28 15:50] VITALS: BP 120/93; PULSE 98; RESP 16; TEMP 36.6; O2SAT 95
== END 2024-04-28 15:51 | disposition home or self-care (01) ==
PROVIDERS: Physician Assistant; Emergency Provider Emergency Medicine
DX: J45.901 Unspecified asthma with (acute) exacerbation (principal); R06.02 Shortness of breath; Z03.818 Encounter for observation for suspected exposure to other biological agents ruled out
CPT/HCPCS: 0241U; 71046; 99284

== ENCOUNTER 2024-05-12 14:46 | Outpatient (REF) | payer OTHER, SELFPAY ==
[2024-05-13 12:01] LABS: CT PCR DETECTED (Not Detect.); NG PCR NOT DETECTED (Not Detect.)
[2024-05-13 14:52] LABS: Bacterial Vaginosis PCR POSITIVE (Negative); Candida Group PCR NOT DETECTED (Not Detect); Candida glab krusei PCR NOT DETECTED (Not Detect); Trichomonas vaginalis PCR NOT DETECTED (Not Detect)
== END 2024-05-12 14:47 | disposition home or self-care (01) ==
LOC: HO.LAB 14:46
PROVIDERS: Visit Provider Advanced Practice Midwife
DX: N89.8 Other specified noninflammatory disorders of vagina (principal); Z20.2 Contact with and (suspected) exposure to infections with a predominantly sexual mode of transmission; Z01.419 Encounter for gynecological examination (general) (routine) without abnormal findings; E28.2 Polycystic ovarian syndrome; E03.9 Hypothyroidism, unspecified; J45.901 Unspecified asthma with (acute) exacerbation; N63.0 Unspecified lump in unspecified breast; Z86.2 Personal history of diseases of the blood and blood-forming organs and certain disorders involving the immune mechanism; Z87.42 Personal history of other diseases of the female genital tract; Z11.3 Encounter for screening for infections with a predominantly sexual mode of transmission; Z12.4 Encounter for screening for malignant neoplasm of cervix
CPT/HCPCS: 0352U; 87491; 87591; 99385

== ENCOUNTER 2024-05-12 14:46 | Outpatient (AMB) | payer OTHER, SELFPAY ==
--- NOTE | 2024-05-12 14:47 | MHC.OFFVIS ---
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 She was seen a couple of years ago after an emergency room visit for heavy bleeding and history consistent with PCOS and in fact she has a past history of being diagnosed with PCOS. She blamed control pills for her facial hair so she stopped taking them. A full complete workup was ordered at that last visit but she moved [place] she only returned somewhat recently she is living in her mother's house where there are cats and she has severe asthma and it is being very severely exacerbated by this. She was in the emergency room last week and was given a pump she does not have a primary care provider's on a waiting list for an appointment next January. She said her sister does not have cats has said she can come live with her but that has not occurred yet. She said she was treated for anemia but the pills ran out when she was in [place] so she has not been on a long time she says her periods are heavy her last period was May 01 and the 1 before that was March 24. The last time she had sex was about 5 weeks ago before her last period. She is not intending to be with anybody now and does not want control at this time.. She also feels she has had a breast mass for a while she discovered it floor the but she feels gotten bigger. [facility] Medical History Hypothyroidism PCOS (polycystic ovarian syndrome) Anemia Social History Patient Tobacco Use Status: Never used Tobacco Female Reproductive History Menstrual Age of Menarche: 9 Duration of menses: 6-7 days Date of last menstrual period: 05/01/24 control method: none Total pregnancies: 0 Date of last pap smear: 01/04/22 (negative) History of abnormal pap smear: No Physical Exam Vital Signs: Last Vital Signs BP 110/60 05/12/24 14:54 BMI result Body Mass Index 27.5 Const General: healthy appearing, comfortable, no acute distress, well developed and alert Nutritional Appearance: average body habitus Orientation/consciousness: patient oriented x3 Limitations: no limitations HEENT Other: Patient appears extremely pale with dark circles under her eyes consistent with anemia we will check CBC to start. Head: Yes normocephalic Neck Neck: Yes normal visual inspection Chest Chest palpation & inspection: normal inspection of the chest Breast/axilla inspection: normal inspection of the breasts and normal inspection of the axillae Breast/axilla palpation: normal palpation of the breasts and normal palpation of the axillae Resp Other: Patient has audible hoarseness consistent with asthma Effort & Inspection: normal respiratory effort and audible wheezes GI Inspection: Yes normal to inspection, No Abdominal wall edema and No distended Palpation (GI): Soft to palpation and nontender Other: External vulva reddened healing folliculitis left groin area . Vagina pink and moist nulliparous cervix pink moist white bubbly discharge noted. Uterus small midposition mobile nontender cervix nontender adnexa nontender fair tone with Kegel. General: Yes bladder normal to palpation External Female Exam: normal external appearance and normal appearance of the urethra Speculum Exam - Vagina: normal appearance of the vagina, normal palpation and normal vaginal discharge Speculum Exam - Cervix: normal appearance of the cervix, normal palpation and nontender Bimanual exam- vagina & uterus: normal bimanual exam, normal palpation, uterine size normal, bladder normal to palpation, consistency normal, normal palpation, uterine mobility normal, uterine shape normal, No Cervical tenderness present, non-tender and no cervical motion tenderness Bimanual Exam- Adnexa, other: normal adnexae, no masses, normal and No adnexal tenderness Neuro General: patient oriented x3 Assessment & Plan Assessment & Plan (1) PCOS (polycystic ovarian syndrome): Code(s): E28.2 - Polycystic ovarian syndrome Category: Medical (2) History of anemia: Comment: Suspect still present, await CBC, Code(s): Z86.2 - Personal history of diseases of the blood and blood-forming organs and certain disorders involving the immune mechanism Category: Medical (3) History of menorrhagia: Code(s): Z87.42 - Personal history of other diseases of the female genital tract Category: Medical (4) Palpable mass of breast: Comment: left breast, 0100, 2-3 cm Code(s): N63.0 - Unspecified lump in unspecified breast Category: Medical (5) Asthma with acute exacerbation: Code(s): J45.901 - Unspecified asthma with (acute) exacerbation Category: Medical (6) Hypothyroidism: Code(s): E03.9 - Hypothyroidism, unspecified Category: Medical (7) Encounter for screening examination for sexually transmitted disease: Code(s): Z11.3 - Encounter for screening for infections with a predominantly sexual mode of transmission Category: Medical (8) Well woman exam with routine gynecological exam: Code(s): Z01.419 - Encounter for gynecological examination (general) (routine) without abnormal findings Category: Medical (9) Cervical cancer screening: Comment: neg pap 2021, Code(s): Z12.4 - Encounter for screening for malignant neoplasm of cervix Category: Medical Plan 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 She was seen a couple of years ago after an emergency room visit for heavy bleeding and history consistent with PCOS and in fact she has a past history of being diagnosed with PCOS. She blamed control pills for her facial hair so she stopped taking them. A full complete workup was ordered at that last visit but she moved [place] she only returned somewhat recently she is living in her mother's house where there are cats and she has severe asthma and it is being very severely exacerbated by this. She was in the emergency room last week and was given a pump she does not have a primary care provider's on a waiting list for an appointment next January. She said her sister does not have cats has said she can come live with her but that has not occurred yet. She said she was treated for anemia but the pills ran out when she was in [place] so she has not been on a long time she says her periods are heavy her last period was May 01 and the 1 before that was March 24. The last time she had sex was about 5 weeks ago before her last period. She is not intending to be with anybody now and does not want control at this time.. She also feels she has had a breast mass for a while she discovered it floor the but she feels gotten bigger. We will get a CBC and TSH. Encouraged the patient to use urgent care if she gets an asthma exacerbation it is about 5-10 minutes from her house in where she is staying currently. I am putting in a breast ultrasound and mammogram order for her left breast and a referral to breast surgeon. Discussed self-care for asthma in the meantime and as much CT avoidance says is humanly possible. Discussed the role of OCPs in management of PCOS we will await CBC to see how serious her anemia is and will treat accordingly. Orders: Orders MM tomosynthesis diagnostic LT Today E03.9 - Hypothyroidism, unspecified, E28.2 - Polycystic ovarian syndrome, J45.901 - Unspecified asthma with (acute) exacerbation, N63.0 - Unspecified lump in unspecified breast, Z86.2 - Personal history of diseases of the blood and blood-forming organs and certain disorders involving the immune mechanism, Z87.42 - Personal history of other diseases of the female genital tract Hepatitis B Surface Antigen Today E03.9 - Hypothyroidism, unspecified, Z01.419 - Encounter for gynecological examination (general) (routine) without abnormal findings, Z11.3 - Encounter for screening for infections with a predominantly sexual mode of transmission, Z12.4 - Encounter for screening for malignant neoplasm of cervix, Z86.2 - Personal history of diseases of the blood and blood-forming organs and certain disorders involving the immune mechanism Syphilis Screen Today E03.9 - Hypothyroidism, unspecified, Z01.419 - Encounter for gynecological examination (general) (routine) without abnormal findings, Z11.3 - Encounter for screening for infections with a predominantly sexual mode of transmission, Z12.4 - Encounter for screening for malignant neoplasm of cervix, Z86.2 - Personal history of diseases of the blood and blood-forming organs and certain disorders involving the immune mechanism US breast LT complete Today E03.9 - Hypothyroidism, unspecified, E28.2 - Polycystic ovarian syndrome, J45.901 - Unspecified asthma with (acute) exacerbation, N63.0 - Unspecified lump in unspecified breast, Z86.2 - Personal history of diseases of the blood and blood-forming organs and certain disorders involving the immune mechanism, Z87.42 - Personal history of other diseases of the female genital tract Hepatitis C Antibody Today E03.9 - Hypothyroidism, unspecified, Z01.419 - Encounter for gynecological examination (general) (routine) without abnormal findings, Z11.3 - Encounter for screening for infections with a predominantly sexual mode of transmission, Z12.4 - Encounter for screening for malignant neoplasm of cervix, Z86.2 - Personal history of diseases of the blood and blood-forming organs and certain disorders involving the immune mechanism HIV Ab/Ag Today E03.9 - Hypothyroidism, unspecified, Z01.419 - Encounter for gynecological examination (general) (routine) without abnormal findings, Z11.3 - Encounter for screening for infections with a predominantly sexual mode of transmission, Z12.4 - Encounter for screening for malignant neoplasm of cervix, Z86.2 - Personal history of diseases of the blood and blood-forming organs and certain disorders involving the immune mechanism Referrals Breast Surgery Referral E28.2 - Polycystic ovarian syndrome, N63.0 - Unspecified lump in unspecified breast, Z86.2 - Personal history of diseases of the blood and blood-forming organs and certain disorders involving the immune mechanism, Z87.42 - Personal history of other diseases of the female genital tract Coding Level of Care Code New Pt Prev Care 18-39yr([id number] Diagnoses PCOS (polycystic ovarian syndrome) E28.2 History of anemia Z86.2 History of menorrhagia Z87.42 Palpable mass of breast N63.0 Asthma with acute exacerbation J45.901 Hypothyroidism E03.9 Encounter for screening examination for sexually transmitted disease Z11.3 Well woman exam with routine gynecological exam Z01.419 Cervical cancer screening Z12.4
[2024-05-12 14:54] VITALS: BP 110/60; BMI 27.5
== END 2024-05-12 16:25 | disposition home or self-care (01) ==
PROVIDERS: Visit Provider Advanced Practice Midwife
DX: Z01.419 Encounter for gynecological examination (general) (routine) without abnormal findings (principal); E28.2 Polycystic ovarian syndrome; E03.9 Hypothyroidism, unspecified; Z11.3 Encounter for screening for infections with a predominantly sexual mode of transmission
CPT/HCPCS: 99385

== ENCOUNTER → 2024-06-01 11:00 | Outpatient (BNV) | payer OTHER, SELFPAY | PROVIDERS: PCP Internal Medicine; Visit Provider Radiology Diagnostic Radiology | DX: N63.22 Unspecified lump in the left breast, upper inner quadrant (principal) | CPT/HCPCS: 76642 ==

== ENCOUNTER 2024-06-01 11:14 | Outpatient (REF) | payer OTHER, SELFPAY ==
--- NOTE | ~2024-06-01 | US_ITS ---
EXAMINATION: US DIAGNOSTIC ULTRASOUND BREAST, LEFT CLINICAL INFORMATION: 23-year-old female, no significant family history of breast CA, no history of breast surgery or trauma, presenting with 1 year palpable abnormality left breast 11:00 axis, increasing in size . COMPARISON: None available. Baseline study. TECHNIQUE: Ultrasound of the left breast is performed with real-time walker scale imaging and color Doppler. Attention was given to the 10:00-1:00 axes left breast, to include the area of palpable concern. FINDINGS: Correlating with the area of palpable concern, left breast 11:00 axis, 7 cm from the nipple, there is a hypoechoic, mildly shadowing, taller than wide, poorly circumscribed mass with irregular borders, scant internal color Doppler flow, echogenic fatty changes surrounding, measuring approximately 1.5 x 1.7 x 1.1 cm. This correlates well with the palpable focus. This finding is suspicious, and ultrasound-guided biopsy is recommended for further characterization. Limited imaging of the left axilla shows no abnormal lymph nodes. No additional abnormalities are evident. US/US breast LT limited mamm only IMPRESSION: 1. Suspicious mass as described left breast 11:00 axis, 7 cm from the nipple, correlating with the area of palpable concern. This finding is indeterminate, and ultrasound-guided biopsy recommended to characterize fully. -Findings and recommendations were discussed with the patient in detail, who appears in understanding. ASSESSMENT: BI-RADS 4: Suspicious RECOMMENDATION: Ultrasound-guided left breast biopsy. Electronically signed by: Louis Bonds MD 06/01/2024 12:47 PM EDT
== END 2024-06-01 11:15 | disposition home or self-care (01) ==
LOC: HO.MAMMO 11:14
PROVIDERS: PCP Internal Medicine; Visit Provider Advanced Practice Midwife
DX: N63.21 Unspecified lump in the left breast, upper outer quadrant (principal); Z87.42 Personal history of other diseases of the female genital tract; Z86.2 Personal history of diseases of the blood and blood-forming organs and certain disorders involving the immune mechanism
CPT/HCPCS: 76642

== ENCOUNTER 2024-06-02 08:44 | Outpatient (AMB) | payer OTHER, SELFPAY ==
--- NOTE | 2024-06-02 08:45 | A.OFFVIS_ITS ---
Vital Signs 3 06/02/24 08:53 Height 5 ft 4 in Weight 168 lb BMI 28.8 BP 159/96 H Blood Pressure Location Lt brachial Position Sitting Pulse 77 Intake Visit Reasons: Left breast ultrasound biopsy 11 o'clock mass Intake Note: Patient is seen in office for left breast ultrasound biopsy consult, 11 o'clock mass. 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 She 1st noted the lump a proximally 1 year ago but was living in [place] and felt that the healthcare was not very good there. She has recently returned to [place]. She feels the lump has increased in size and has moved a lower in the breast but denies any pain or skin changes associated with the lesion. She denies nipple discharge. She has a past history of polycystic ovary syndrome, anemia due to menorrhagia, and hypothyroidism. Her menarche was at 9. She is G0. Ultrasound of the breast was performed and revealed a hypoechoic, mildly shadowing, taller than wide, poorly circumscribed mass with irregular borders, skin internal color Doppler flow, and echogenic fat changes surrounding measuring approximately 1.5 x 1.7 x 1.1 cm. This correlates with the palpable focus in the 1 o'clock position and was felt to be suspicious for malignancy. She is scheduled [facility] an [facility]- [facility] She denies a previous history of breast problems or breast surgery. Her family history is positive for her maternal grandmother being diagnosed with breast cancer. [facility] Medical History (Updated 06/02/24 @ 08:52 by Abdoulaye Gramajo MD) Hypothyroidism PCOS (polycystic ovarian syndrome) Anemia Family History (Updated 06/02/24 @ 09:00 by LUCI Akins) Maternal Grandmother Breast cancer, Onset Age: 76 Mother Thyroid cancer Paternal Grandmother Kidney carcinoma Social History Alcohol intake: never Patient Tobacco Use Status: Never used Tobacco Female Reproductive History Menstrual Age of Menarche: 9 Date of last menstrual period: 05/01/24 Total pregnancies: 0 Review of Systems Const All systems reviewed & are unremarkable except as noted in HPI and below Denies chills, Denies fever(s), Denies headache(s), Denies poor appetite and Denies weakness ENT Denies headache(s) Card Denies chest pain, Denies irregular heart rhythm, Denies palpitations and Denies dyspnea Resp Denies cough, Denies excessive phlegm production and Denies dyspnea GI Denies abdominal pain, Denies bloating, Denies change in bowel habits, Denies constipation, Denies heartburn, Denies diarrhea, Denies nausea and Denies vomiting Denies urinary frequency and Denies nipple discharge Musc Denies back pain, Denies muscle weakness and Denies numbness Skin/Breast Denies breast skin changes, Denies breast pain, Reports breast mass, Denies changing lesions, Denies nipple discharge and Denies unusual bruising Neuro Denies headache(s), Denies numbness, Denies paresthesias and Denies weakness Psych Denies anxiety and Denies depression Endo Denies palpitations Morgan/Lymph Denies lymphadenopathy Physical Exam Vital Signs: Last Vital Signs Pulse 77 06/02/24 08:53 BP 159/96 H 06/02/24 08:53 BMI result Body Mass Index 28.8 Const General: cooperative and no acute distress Nutritional Appearance: well nourished Orientation/consciousness: patient oriented x3 Limitations: no limitations HEENT Head: Yes normocephalic and Yes atraumatic Ears: hearing grossly normal bilaterally Chest Other: Left breast: No skin change, no nipple retraction, no nipple discharge, no enlarged lymph nodes, palpable mass in the 01:00 o'clock location measuring approximately 2 cm in diameter. No overlying skin changes and no fixation to the chest wall appreciated. Right breast: No skin change, no nipple retraction, no nipple discharge, no palpable mass, no enlarged lymph nodes Chest/axillae images: 2 1. Palpable mass in the upper outer quadrant proximally 01:00 o'clock axis, nontender to palpation, mobile within the breast tissue. Resp Effort & Inspection: normal respiratory effort, no audible wheezes, no cough and no respiratory distress Cardio Jugular venous distension: no JVD GI Inspection: Yes normal to inspection Skin Other: Warm, dry, no rash Neuro General: patient oriented x3 Extrem General: Yes no clubbing, cyanosis or edema Assessment & Plan Assessment & Plan (1) Abnormal ultrasound of breast: Code(s): R92.8 - Other abnormal and inconclusive findings on diagnostic imaging of breast Category: Medical (2) Palpable mass of breast: Code(s): N63.0 - Unspecified lump in unspecified breast Category: Medical Plan 23-year-old female patient presenting with a 1 year history of a palpable mass in the left breast at the upper outer quadrant. The lump has increased in size over this time. Ultrasound reveals a suspicious density corresponding to the palpable mass. On examination there is indeed a palpable mass measuring approximately 2 cm in diameter with a suspicious feel. She is scheduled for an ultrasound-guided core biopsy later today at the [facility]. I recommended a follow-up visit in 1 week to review the pathology results and discuss treatment options. She expressed understanding and agrees with the plan. Orders: Orders 2 US breast ndl core biopsy LT Today R92.8 - Other abnormal and inconclusive findings on diagnostic imaging of breast Coding Level of Care Code New Pt Level 4 (31162) Complex EM visit Add On G2211 Diagnoses Abnormal ultrasound of breast R92.8 Palpable mass of breast N63.0
[2024-06-02 08:53] VITALS: BP 159/96; PULSE 77; BMI 28.8
== END 2024-06-02 09:06 | disposition home or self-care (01) ==
LOC: HO.HGS 08:44
PROVIDERS: PCP Internal Medicine; Visit Provider Surgery
DX: R92.8 Other abnormal and inconclusive findings on diagnostic imaging of breast (principal); N63.0 Unspecified lump in unspecified breast
CPT/HCPCS: 99204; G2211

== ENCOUNTER → 2024-06-02 10:00 | Outpatient (BNV) | payer OTHER, SELFPAY | PROVIDERS: PCP Internal Medicine; Visit Provider Radiology Diagnostic Radiology | DX: N63.22 Unspecified lump in the left breast, upper inner quadrant (principal) | CPT/HCPCS: 19083; 77065 ==

== ENCOUNTER 2024-06-02 10:03 | Outpatient (REF) | payer OTHER, SELFPAY ==
--- NOTE | ~2024-06-02 | US_ITS ---
PROCEDURE: US GUIDED BREAST BIOPSY, LEFT CLINICAL INFORMATION: Left breast 11:00 axis irregular hypoechoic suspicious mass, 7 cm from the nipple, measuring 1.5 x 1.7 x 1.1 cm approximately. For biopsy. COMPARISON: Left breast diagnostic ultrasound 05/24/2024. PROCEDURAL DETAILS: The details of the procedure, as well as the risks, benefits, and alternatives to the procedure were explained to the patient in detail and all of her questions were answered, after which written informed consent was obtained. Site and side were confirmed. Prior to the procedure, sonography revealed the irregular hypoechoic mass at the 11:00 axis left breast. A time-out was performed, the lesion intended for biopsy was targeted, and the skin of the overlying left breast was then marked, prepped and draped in the usual sterile fashion. Using sonographic guidance, sterile technique, and 1% lidocaine without epinephrine for local anesthesia, multiple core biopsies were obtained through the targeted area with a 14G spring loaded Black Lotusera core biopsy device. There was real-time confirmation of appropriate needle passage. Sampling was documented. At the completion of tissue sampling, a single butterfly shaped metallic clip was deposited at the biopsy site. There was no evidence of immediate complication. SPECIMEN: 3 well formed core samples were obtained. DIGITAL POST-PROCEDURE MAMMOGRAPHY: Breast density: The tissue is extremely dense, which lowers the sensitivity of mammography. BI-RADS version 5, category D. There are no suspicious mammographic findings demonstrated. Regional biopsy is obscured largely by very dense tissue. The postprocedure 2-view direct digital mammogram reveals satisfactory positioning of the biopsy clip. No hematoma present. The patient tolerated the procedure well and, after assuring adequate hemostasis, was discharged in good condition after reviewing postbiopsy breast care instructions. Final pathology results are pending. US/US breast ndl core biopsy LT IMPRESSION: 1. No immediate complication from ultrasound-guided percutaneous biopsy left breast. 2. Ultrasound was used to localize and guide marker clip placement. 3. The 2-view direct digital postprocedure mammogram reveals satisfactory positioning of the biopsy clip. 4. Final pathology results are pending. A separate report with final recommendations will be issued once these results are made available. Electronically signed by: Louis Bonds MD 06/02/2024 12:09 PM EDT
[2024-06-02] MEDS: Sodium Bicarbonate 8.4% 50 MEQ/50 ML VIAL SUBCUT (11:12)
[2024-06-02] MEDS: Lidocaine HCl 1 % 20 ML VIAL 9 ML SUBCUT (11:13)
== END 2024-06-02 10:04 | disposition home or self-care (01) ==
LOC: HO.MAMMO 10:03
PROVIDERS: PCP Internal Medicine; Visit Provider Surgery
DX: R92.8 Other abnormal and inconclusive findings on diagnostic imaging of breast (principal); N63.0 Unspecified lump in unspecified breast
CPT/HCPCS: 19083; 77061; 77065; 88305; 99202; A4648; C1894; J2003

== ENCOUNTER 2024-06-09 09:29 | Outpatient (AMB) | payer OTHER, SELFPAY ==
--- NOTE | 2024-06-09 09:35 | A.OFFVIS_ITS ---
Vital Signs 06/09/24 09:39 Height 5 ft 4 in Weight 168 lb 0.581 oz BMI 28.8 Respiration 6 L Pulse 72 Intake Visit Reasons: 1 wk f. u.Lft breast US biopsy 11 o'clock mass Intake Note: Patient is seen in office for ultrasound biopsy results left breast 11 o'clock mass. Pt c/o: no concerns after bx, here for results [employer] Required: No Lpn Home Health: Lpn Home Health Present Accompanied by: Mother Allergies ibuprofen [From MOTRIN] Allergy (Unknown, Verified 06/09/24 09:39) HIVES HPI Comments Details: 23-year-old female patient returning following an ultrasound-guided core biopsy of the left breast mass at 11:00 o'clock performed at the [facility] on 06/02/2024. She tolerated the procedure well and denies any problems following the procedure. Pathology revealed benign breast tissue with stromal fibrosis and chronic inflammation. 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 Her family history is positive for her maternal grandmother being diagnosed with breast cancer. [facility] Medical History Hypothyroidism PCOS (polycystic ovarian syndrome) Anemia Family History Maternal Grandmother Breast cancer, Onset Age: 76 Mother Thyroid cancer Paternal Grandmother Kidney carcinoma Social History Alcohol intake: never Patient Tobacco Use Status: Never used Tobacco Female Reproductive History Menstrual Age of Menarche: 9 Review of Systems Const All systems reviewed & are unremarkable except as noted in HPI and below Physical Exam Const General: no acute distress Nutritional Appearance: well nourished Orientation/consciousness: patient oriented x3 Chest Other: Exam deferred Resp Effort & Inspection: normal respiratory effort, no audible wheezes, no cough and no respiratory distress Skin Other: Warm, dry, no rash Neuro General: patient oriented x3 Extrem Other: No edema Assessment & Plan Assessment & Plan (1) Abnormal ultrasound of breast: Code(s): R92.8 - Other abnormal and inconclusive findings on diagnostic imaging of breast Category: Medical (2) Palpable mass of breast: Code(s): N63.0 - Unspecified lump in unspecified breast Category: Medical Plan 23-year-old female patient presenting with a palpable breast mass located in the upper outer quadrant of the left breast. Subsequent mammogram and ultrasound revealed suspicious findings corresponding to the palpable lump. Ultrasound- guided core biopsy revealed benign breast tissue with stromal fibrosis and chronic inflammation. There was no evidence of malignancy. The patient tolerated the biopsy well and denies any ongoing breast symptoms. A copy of the pathology report was provided to the patient. We discussed the option of continued observation of the palpable lump verses excision. She wishes to continue observation and will call should her symptoms change. Coding Level of Care Code Est Pt Level 3 (57057) Diagnoses Abnormal ultrasound of breast R92.8 Palpable mass of breast N63.0
[2024-06-09 09:39] VITALS: PULSE 72; RESP 6; BMI 28.8
== END 2024-06-09 09:42 | disposition home or self-care (01) ==
LOC: HO.HGS 09:29
PROVIDERS: PCP Internal Medicine; Visit Provider Surgery
DX: R92.8 Other abnormal and inconclusive findings on diagnostic imaging of breast (principal); N63.0 Unspecified lump in unspecified breast
CPT/HCPCS: 99213

== ENCOUNTER 2024-06-09 09:29 | Outpatient (REF) | payer OTHER, SELFPAY ==
[2024-06-10 08:50] LABS: HBsAGNum1 0.27 S/CO (0.00-0.99); HIV AB/AG Nonreactive (Nonreactive); HIV Num 1 0.06 S/CO (0.00-0.99); Hepatitis B Surface Antigen Negative (Negative); ~HepC Num1 0.16 S/CO (0.00-0.79); ~Hepatitis C Antibody Nonreactive (Nonreactive)
[2024-06-10 09:12] LABS: Syphilis Screen Nonreactive (Nonreactive)
== END 2024-06-09 09:30 | disposition home or self-care (01) ==
LOC: HO.LAB 09:29
PROVIDERS: PCP Internal Medicine; Referring Provider Advanced Practice Midwife; Visit Provider Surgery
DX: R92.8 Other abnormal and inconclusive findings on diagnostic imaging of breast (principal); Z11.3 Encounter for screening for infections with a predominantly sexual mode of transmission; E03.9 Hypothyroidism, unspecified; Z86.2 Personal history of diseases of the blood and blood-forming organs and certain disorders involving the immune mechanism; Z01.419 Encounter for gynecological examination (general) (routine) without abnormal findings; Z12.4 Encounter for screening for malignant neoplasm of cervix; N63.21 Unspecified lump in the left breast, upper outer quadrant; Z98.890 Other specified postprocedural states
CPT/HCPCS: 36415; 86780; 86803; 87340; 87389; 99212